=== PATIENT | male | born 1970 | race Caucasian/White ===

== ENCOUNTER 2021-11-15 08:16 | Outpatient (CLI) | payer BC, SELFPAY ==
--- NOTE | ~2021-11-15 | US_ITS ---
EXAMINATION: US arterial ankle brachial ind EXAM DATE: 11/15/2021 09:02 INDICATION: PVD right big toe coldness. TECHNIQUE: Segmental pressures and plethysmographic and Doppler waveforms of the brachial and lower e xtremity arteries were obtained. There is no prior study for comparison. FINDINGS: Right and left brachial artery pressures of 114 mm Hg and 127 mm Hg, respectively, are concordant (no rmal difference <= 30 mmHg). RIGHT LEG: The ankle-brachial index (CANDICE) is 0.62 (normal >= 0.9-1). The great toe-brachial index (TBI) is 0.04 (normal >= 0.65). The lower extremity ratios, segmental pressure gradients as follows; Dorsalis pedis: No pulse identified ( mmHg). Posterior tibial: 0.62 (79 mmHg). (Normal gradients <= 20-30 mmHg between adjacent levels on the same leg or the same levels on the two legs). Arterial waveforms are dampened, monophasic parvus tardus. LEFT LEG: The ankle-brachial index (CANDICE) is 1.01 (normal >= 0.9-1). The great toe-brachial index (TBI) is 0.87 (normal >= 0.65). The lower extremity ratios, segmental pressure gradients as follows; Dorsalis pedis: 0.87 (111 mmHg). Posterior tibial: 1.01 (128 mmHg). (Normal gradients <= 20-30 mmHg between adjacent levels on the same leg or the same levels on the two legs). Arterial waveforms are biphasic PT, monophasic DP. IMPRESSION: 1. Right ankle-brachial index 0.62, normal. Severely diminished TBI. Absent right DP pulse. 2. Left ankle-brachial index 1.01, normal. Moderately diminished TBI. Reviewed, dictated and finalized at location G. [employer] IMPRESSION: 1. Right ankle-brachial index 0.62, normal. Severely diminished TBI. Absent ri ght DP pulse. 2. Left ankle-brachial index 1.01, normal. Moderately diminished TBI.
== END 2021-11-15 08:17 | disposition home or self-care (01) ==
PROVIDERS: Visit Provider Physician Assistant Surgical
DX: I73.9 Peripheral vascular disease, unspecified (principal)
CPT/HCPCS: 93922